=== PATIENT | male | born 1975 | race Caucasian/White ===

== ENCOUNTER 2020-08-24 15:48 | Emergency (ER) | payer SELFPAY ==
[2020-08-24] MEDS ORDERED: ACETAMINOPHEN 500 MG TAB (TYLENOL) PO STA (16:40)
--- NOTE | 2020-08-24 17:08 | ED Cough/URI ---
General Chief Complaint: Cough/Cold/Flu Symptoms Stated Complaint: LOW BACK PAIN/SOA/COUGH/COVID EXPOSED Nursing Triage Note: PT STATES EXPOSED TO COVID, HAS BEEN HAVING COUGH MUSCLE ACHES Sepsis Screen: No Definite Risk Source: patient Exam Limitations: no limitations History of Present Illness Date Seen by Provider: Aug 24, 2020 Time Seen by Provider: 16:20 Initial Comments Here with report of exposure to Covid through family members over the last week. Has had symptoms of cough and fatigue and body aches for the last 5 or 6 days. Significant other with similar. Took some ibuprofen for some low back pain and muscle aches and that helped. Eating and drinking okay. Concerned about Covid infection. Timing/Duration: week, getting worse Severity/Quality: mild, dry cough Prior Episodes/Possible Cause: no prior episodes Modifying Factors: Improves With Rest Associated Symptoms: cough, fever/chills, muscle aches, nasal congestion, short ness of breath, sore throat Allergies and Home Medications Allergies Coded Allergies: No Known Drug Allergies (Unverified , 08/24/20) Patient Home Medication List Home Medication List Reviewed: Yes Review of Systems Review of Systems Constitutional: see HPI EENTM: see HPI Respiratory: see HPI Cardiovascular: no symptoms reported Gastrointestinal: no symptoms reported Genitourinary: no symptoms reported Musculoskeletal: back pain, muscle pain All Other Systems Reviewed Negative Unless Noted: Yes Past Wljxdup-Qhqsbg-Ypqzfr Hx Past Med/Social Hx: Reviewed Nursing Past Med/Soc Hx Patient Social History Alcohol Use: Denies Use Smoking Status: Current Everyday Smoker Type Used: Cigarettes Recent Infectious Disease Expo: No Past Medical History Surgeries: No Respiratory: Yes Asthma Cardiac: Yes Coronary Artery Disease Neurological: No Gastrointestinal: No Endocrine: No Family Medical History Reviewed Nursing Family Hx Heart Disease Physical Exam Vital Signs - First Documented 08/24/20 16:10 Temp 37.0 Pulse 82 Resp 18 B/P (MAP) 141/89 (106) Pulse Ox 99 Capillary Refill : Less Than 3 Seconds Height: '" Weight: lbs. oz. kg; BMI Method: General Appearance: WD/WN, no apparent distress HEENT: PERRL/EOMI, pharyngeal erythema Neck: full range of motion, supple Respiratory: lungs clear, normal breath sounds Cardiovascular: regular rate, rhythm, no murmur Gastrointestinal: non tender, soft Neurologic/Psychiatric: alert, oriented x 3 Skin: normal color, warm/dry Progress/Results/Core Measures Suspected Sepsis Recent Fever Within 48 Hours: No Infection Criteria Present: Suspected New Infection New/Unexplained Altered Menta: No Sepsis Screen: No Definite Risk SIRS Temperature: Pulse: 82 Respiratory Rate: 18 Blood Pressure 141 /89 Mean: 106 Results/Orders Lab Results Laboratory Tests Test 08/24/20 16:27 Range/Units Coronavirus 2019 (REBEAC) Negative Negative My Orders Orders - LIBBY JESSICA MD Acetaminophen Tablet (Tylenol Tablet) (08/24/20 16:40) Influenza A And B Antigens (08/24/20 16:49) Covid 19 Inhouse Test (08/24/20 16:49) Vital Signs/I&O 08/24/20 16:10 Temp 37.0 Pulse 82 Resp 18 B/P (MAP) 141/89 (106) Pulse Ox 99 Capillary Refill : Less Than 3 Seconds Blood Pressure Mean: 106 Progress Note : Progress Note Seen and evaluated. Rapid influenza and rapid Covid test ordered. Tylenol 1 g p.o. Monitor patient. 1745: Flu negative. Covid negative. Confirmatory testing ordered. He is feeling a little better after Tylenol. Discharged home with return precautions. Patient verbalized understanding of instructions and agreement with plan. Departure Impression Primary Impression: Person under investigation for COVID-19 Additional Impression: Viral upper respiratory illness Disposition: 01 HOME, SELF-CARE Condition: Stable Departure-Patient Inst. Decision time for Depature: 17:30 Patient Instructions: Viral Upper Respiratory Infection, Adult (DC), Coronavirus Disease 2019 (COVID-19) (DC) Add. Discharge Instructions: All discharge instructions reviewed with patient and/or family. Voiced understanding. Drink plenty of fluids and get plenty of rest. You will need to remain isolated until test results are noted. If they are negative, you will need remain isolated for 24 hours after symptoms resolve. If they are positive, the health department will call you and direct quarantine/isolation timeframe. You may take ibuprofen 600 mg every 8 hours as needed for fever or pain. You may take Tylenol/acetaminophen 1000 mg every 8 hours as needed for fever or pain. Return for worse pain, fever, vomiting, weakness, breathing problems or other concerns as needed. You will still need to remain quarantined after exposure to family members with COVID-19 for up to 10 days after exposure or as directed by the health department. LIBBY JESSICA MD Aug 24, 2020 17:08
[2020-08-24 17:55] VITALS: BP 141/89
== END 2020-08-24 17:55 | disposition home or self-care (01) ==
LOC: ER 15:50
DX: J06.9 Acute upper respiratory infection, unspecified (principal); F17.210 Nicotine dependence, cigarettes, uncomplicated; Z20.822 Contact with and (suspected) exposure to COVID-19
CPT/HCPCS: 87804; 99282; U0002; 87635

== ENCOUNTER 2021-01-25 15:01 | Emergency (ER) | payer SELFPAY ==
[~2021-01-25] VITALS: Ht 185 cm; Wt 83.9 kg
[2021-01-25 16:10] LABS: BASOPHILS % (AUTO) 1 % (0-10); EOSINOPHILS # (AUTO) 0.1 10^3/uL (0.0-0.3); EOSINOPHILS % (AUTO) 3 % (0-10); HEMATOCRIT 43 % (40-54); HEMOGLOBIN 14.5 g/dL (13.3-17.7); LYMPHOCYTES # (AUTO) 0.2 X 10^3 (1.0-4.0); LYMPHOCYTES % (AUTO) 5 % (12-44); MEAN CORPUSCULAR HEMOGLOBIN 30 pg (25-34); MEAN CORPUSCULAR HGB CONC 34 g/dL (32-36); MEAN CORPUSCULAR VOLUME 88 fL (80-99); MONOCYTES # (AUTO) 0.5 X 10^3 (0.0-1.0); MONOCYTES % (AUTO) 11 % (0-12); NEUTROPHILS # (AUTO) 3.9 X 10^3 (1.8-7.8); NEUTROPHILS % (AUTO) 81 % (42-75); PLATELET COUNT 227 10^3/uL (130-400); WHITE BLOOD COUNT 4.9 10^3/uL (4.3-11.0)
--- NOTE | 2021-01-25 16:23 | ED Cough/URI ---
General Chief Complaint: Cough/Cold/Flu Symptoms Stated Complaint: COVID EXPOSURE, LOSS OF TASTE, FATIGUE,COUGH,FEVER Nursing Triage Note: PT PRESENTS TO ED FOR COUGH AND FATIGUE THAT STARTED AROUND NOON TODAY. PT REPORTS HIS TESTED POSITIVE FOR COVID TODAY. PT AMB. TO ROOM 10 WITHOUT DIFFICULTY. Sepsis Screen: Possible Severe Sepsis Risk Source: patient Exam Limitations: no limitations History of Present Illness Date Seen by Provider: Jan 25, 2021 Time Seen by Provider: 15:02 Initial Comments To ER with fatigue and shortness of breath at noon today. His is Covid positive. He has a history of asthma. Timing/Duration: constant Severity/Quality: moderate Associated Symptoms: cough Allergies and Home Medications Allergies Coded Allergies: banana (Verified Allergy, Severe, THROAT SWELLING, 01/25/21) Patient Home Medication List Home Medication List Reviewed: Yes Review of Systems Review of Systems Constitutional: see HPI, malaise EENTM: see HPI Respiratory: see HPI, dyspnea on exertion, short of breath Cardiovascular: no symptoms reported Genitourinary: no symptoms reported Musculoskeletal: no symptoms reported Skin: no symptoms reported Psychiatric/Neurological: No Symptoms Reported Hematologic/Lymphatic: No Symptoms Reported Immunological/Allergic: no symptoms reported Past Ecqfnqo-Bkrvlc-Pijqmg Hx Patient Social History Alcohol Use: Denies Use Smoking Status: Current Everyday Smoker Type Used: Cigarettes Recent Infectious Disease Expo: Yes (COVID) Recent Hopitalizations: No Seasonal Allergies Seasonal Allergies: No Past Medical History Surgeries: Yes (HEART CATH 2016) Respiratory: Yes Asthma Cardiac: Yes Coronary Artery Disease Neurological: No Gastrointestinal: No Endocrine: No Integumentary: No Family Medical History Heart Disease Physical Exam Vital Signs - First Documented 01/25/21 15:15 Temp 38.1 Pulse 115 Resp 22 B/P (MAP) 149/90 (109) O2 Delivery Room Air O2 Flow Rate 96.00 Capillary Refill : Less Than 3 Seconds Height: '" Weight: lbs. oz. kg; 24.00 BMI Method: General Appearance: WD/WN, no apparent distress, other (Oxygen saturation 97% room air) Eyes: Bilateral Eye Normal Inspection, Bilateral Eye PERRL Neck: non-tender, full range of motion Respiratory: no respiratory distress, no accessory muscle use Cardiovascular: no murmur, tachycardia Gastrointestinal: normal bowel sounds, non tender, soft Neurologic/Psychiatric: alert, normal mood/affect, oriented x 3 Skin: normal color, warm/dry Progress/Results/Core Measures Suspected Sepsis Recent Fever Within 48 Hours: Yes Infection Criteria Present: Suspected New Infection New/Unexplained Altered Menta: No Sepsis Screen: Possible Severe Sepsis Risk SIRS Temperature: Pulse: 115 Respiratory Rate: 22 Laboratory Tests 01/25/21 15:30: White Blood Count 4.9 Blood Pressure 149 /90 Mean: 109 Laboratory Tests 01/25/21 15:30: Creatinine 1.07, Platelet Count 227, Total Bilirubin 0.4 Results/Orders Lab Results Laboratory Tests Test 01/25/21 15:18 01/25/21 15:30 Range/Units Influenza Type A (RT-PCR) Not Detected Not Detecte Influenza Type B (RT-PCR) Not Detected Not Detecte SARS-CoV-2 RNA (RT-PCR) Detected H Not Detecte White Blood Count 4.9 4.3-11.0 10^3/uL Red Blood Count 4.87 4.30-5.52 10^6/uL Hemoglobin 14.5 13.3-17.7 g/dL Hematocrit 43 40-54 % Mean Corpuscular Volume 88 80-99 fL Mean Corpuscular Hemoglobin 30 25-34 pg Mean Corpuscular Hemoglobin Concent 34 32-36 g/dL Red Cell Distribution Width 12.3 10.0-14.5 % Platelet Count 227 130-400 10^3/uL Mean Platelet Volume 10.0 9.0-12.2 fL Immature Granulocyte % (Auto) 0 % Neutrophils (%) (Auto) 81 H 42-75 % Lymphocytes (%) (Auto) 5 L 12-44 % Monocytes (%) (Auto) 11 0-12 % Eosinophils (%) (Auto) 3 0-10 % Basophils (%) (Auto) 1 0-10 % Neutrophils # (Auto) 3.9 1.8-7.8 X 10^3 Lymphocytes # (Auto) 0.2 L 1.0-4.0 X 10^3 Monocytes # (Auto) 0.5 0.0-1.0 X 10^3 Eosinophils # (Auto) 0.1 0.0-0.3 10^3/uL Basophils # (Auto) 0.0 0.0-0.1 10^3/uL Immature Granulocyte # (Auto) 0.0 0.0-0.1 10^3/uL Neutrophils % (Manual) 84 % Lymphocytes % (Manual) 5 % Monocytes % (Manual) 8 % Eosinophils % (Manual) 2 % Band Neutrophils 1 % Blood Morphology Comment NORMAL Sodium Level 138 135-145 MMOL/L Potassium Level 3.9 3.6-5.0 MMOL/L Chloride Level 105 98-107 MMOL/L Carbon Dioxide Level 23 21-32 MMOL/L Anion Gap 10 5-14 MMOL/L Blood Urea Nitrogen 12 7-18 MG/DL Creatinine 1.07 0.60-1.30 MG/DL Estimat Glomerular Filtration Rate > 60 BUN/Creatinine Ratio 11 Glucose Level 95 70-105 MG/DL Calcium Level 9.6 8.5-10.1 MG/DL Corrected Calcium 9.2 8.5-10.1 MG/DL Total Bilirubin 0.4 0.1-1.0 MG/DL Aspartate Amino Transf (AST/SGOT) 25 5-34 U/L Alanine Aminotransferase (ALT/SGPT) 25 0-55 U/L Alkaline Phosphatase 58 40-136 U/L C-Reactive Protein High Sensitivity 0.31 0.00-0.50 MG/DL Total Protein 7.4 6.4-8.2 GM/DL Albumin 4.5 3.2-4.5 GM/DL My Orders Orders - TENA RIVERS ASSOCIATE TEACHER Covid 19 Inhouse Test (01/25/21 15:46) Influenza A And B By Pcr (01/25/21 15:46) Cbc With Automated Diff (01/25/21 16:01) Comprehensive Metabolic Panel (01/25/21 16:01) Fibrin Degradation Products (01/25/21 16:01) Hs C Reactive Protein (01/25/21 16:01) Chest 1 View, Ap/Pa Only (01/25/21 16:01) Manual Differential (01/25/21 15:30) Vital Signs/I&O 01/25/21 01/25/21 15:15 15:15 Temp 38.1 Pulse 115 Resp 22 B/P (MAP) 149/90 (109) O2 Delivery Room Air Room Air O2 Flow Rate 96.00 Capillary Refill : Less Than 3 Seconds Blood Pressure Mean: 109 Diagnostic Imaging Diagonstic Imaging: Xray Plain Films/CT/US/NM/MRI: chest Comments NAME: MALCOLM ESTRADA Neil [facility] REC#: [id number] PT STATUS: REG ER : 1975 PHYSICIAN: TENA RIVERS APRN ADMIT DATE: 01/25/21/ER Draft Date of Exam:01/25/21 CHEST 1 VIEW, AP/PA ONLY INDICATION: cough COMPARISON: None. FINDINGS: Single frontal view of the chest demonstrates normal heart size and pulmonary vascularity. The lungs are well aerated and clear. No large pleural effusion or pneumothorax is seen. The visualized osseous structures show no acute abnormalities. IMPRESSION: 1. No acute cardiopulmonary process. Dictated on workstation # [id number] Dict: 01/25/21 1643 Trans: 01/25/21 1645 [id number] Interpreted by: ARJUN ORTIZ MD Electronically signed by: Departure Impression Primary Impression: COVID-19 Disposition: 01 HOME, SELF-CARE Condition: Stable Departure-Patient Inst. Decision time for Depature: 16:25 Referrals: NO,LOCAL PHYSICIAN (PCP/Family) Primary Care Physician Patient Instructions: COVID-19 ED Work/School Note: Work Release Form Date Seen in the Emergency Department: Jan 25, 2021 Return to Work: Feb 05, 2021 TENA RIVERS APRN Jan 25, 2021 16:23
[2021-01-25 16:25] LABS: BAND NEUTROPHILS 1 %; EOSINOPHILS % (MANUAL) 2 %; LYMPHOCYTES % (MANUAL) 5 %; MONOCYTES % (MANUAL) 8 %; NEUTROPHILS % (MANUAL) 84 %
[2021-01-25 16:26] LABS: RBC MORPH NORMAL
[2021-01-25 16:29] LABS: ALBUMIN 4.5 GM/DL (3.2-4.5); CHLORIDE 105 MMOL/L (98-107); POTASSIUM 3.9 MMOL/L (3.6-5.0); SODIUM 138 MMOL/L (135-145)
[2021-01-25 16:30] LABS: CALCIUM 9.6 MG/DL (8.5-10.1)
[2021-01-25 16:32] LABS: GLUCOSE 95 MG/DL (70-105); TOTAL PROTEIN 7.4 GM/DL (6.4-8.2)
[2021-01-25 16:33] LABS: BILIRUBIN,TOTAL 0.4 MG/DL (0.1-1.0); CARBON DIOXIDE 23 MMOL/L (21-32)
[2021-01-25 16:35] LABS: ALKALINE PHOSPHATASE 58 U/L (40-136); CREATININE SERUM 1.07 MG/DL (0.60-1.30); GFR ESTIMATED > 60
[2021-01-25 16:36] LABS: BUN/CREATININE RATIO 11
[2021-01-25 16:38] LABS: ALANINE AMINOTRANSFERASE 25 U/L (0-55)
--- NOTE | 2021-01-25 16:45 | Diagnostic Imaging Report ---
INDICATION: cough COMPARISON: None. FINDINGS: Single frontal view of the chest demonstrates normal heart size and pulmonary vascularity. The lungs are well aerated and clear. No large pleural effusion or pneumothorax is seen. The visualized osseous structures show no acute abnormalities. IMPRESSION: 1. No acute cardiopulmonary process. Dictated by: Dictated on workstation # [id number]
[2021-01-25 17:50] VITALS: BP 126/86
== END 2021-01-25 17:50 | disposition home or self-care (01) ==
LOC: EDUNIT# 15:01 → ER 15:03
DX: U07.1 COVID-19 (principal); J45.909 Unspecified asthma, uncomplicated; F17.210 Nicotine dependence, cigarettes, uncomplicated
CPT/HCPCS: 36415; 71045; 80053; 85007; 85027; 86141; 87636

== ENCOUNTER 2021-02-04 10:58 | Emergency (ER) | payer SELFPAY ==
[~2021-02-04] VITALS: Ht 185.4 cm; Wt 83.9 kg
[2021-02-04] MEDS ORDERED: NS IV 1000 ML 1,000 ML IV SCH (11:45)
[2021-02-04] MEDS ORDERED: ONDANSETRON 4 MG/2 ML (SDV) Z0FRAN IVP ONE (11:45)
[2021-02-04 12:04] LABS: BASOPHILS % (AUTO) 0 % (0-10); EOSINOPHILS # (AUTO) 0.1 10^3/uL (0.0-0.3); EOSINOPHILS % (AUTO) 1 % (0-10); HEMATOCRIT 45 % (40-54); HEMOGLOBIN 15.5 g/dL (13.3-17.7); LYMPHOCYTES # (AUTO) 0.9 10^3/uL (1.0-4.0); LYMPHOCYTES % (AUTO) 12 % (12-44); MEAN CORPUSCULAR HEMOGLOBIN 30 pg (25-34); MEAN CORPUSCULAR HGB CONC 35 g/dL (32-36); MEAN CORPUSCULAR VOLUME 86 fL (80-99); MEAN PLATELET VOLUME 10.9 fL (9.0-12.2); MONOCYTES # (AUTO) 0.7 10^3/uL (0.0-1.0); MONOCYTES % (AUTO) 8 % (0-12); NEUTROPHILS # (AUTO) 6.1 10^3/uL (1.8-7.8); NEUTROPHILS % (AUTO) 79 % (42-75); PLATELET COUNT 181 10^3/uL (130-400); WHITE BLOOD COUNT 7.7 10^3/uL (4.3-11.0)
[2021-02-04 12:13] LABS: ALBUMIN 4.1 GM/DL (3.2-4.5); CHLORIDE 106 MMOL/L (98-107); POTASSIUM 3.9 MMOL/L (3.6-5.0); SODIUM 140 MMOL/L (135-145)
[2021-02-04 12:14] LABS: CALCIUM 9.1 MG/DL (8.5-10.1)
[2021-02-04 12:16] LABS: GLUCOSE 90 MG/DL (70-105); TOTAL PROTEIN 7.1 GM/DL (6.4-8.2)
[2021-02-04 12:17] LABS: BILIRUBIN,TOTAL 0.9 MG/DL (0.1-1.0); CARBON DIOXIDE 21 MMOL/L (21-32)
[2021-02-04 12:19] LABS: ALKALINE PHOSPHATASE 75 U/L (40-136)
[2021-02-04 12:20] LABS: CREATININE SERUM 0.98 MG/DL (0.60-1.30); GFR ESTIMATED > 60
[2021-02-04 12:21] LABS: BUN/CREATININE RATIO 12
[2021-02-04 12:22] LABS: ALANINE AMINOTRANSFERASE 28 U/L (0-55)
--- NOTE | 2021-02-04 12:34 | Diagnostic Imaging Report ---
INDICATION: Cough and shortness of breath. TIME OF EXAM: 12:20 PM Correlation is made with prior chest 01/25/2021. FINDINGS: The heart size is normal. The pulmonary vascularity is unremarkable. The lungs are clear. No infiltrate, effusion or pneumothorax is detected. IMPRESSION: No acute cardiopulmonary process is detected. Dictated by: Dictated on workstation # [id number]
--- NOTE | 2021-02-04 12:38 | ED Cough/URI ---
General Chief Complaint: Respiratory Problems Stated Complaint: SOB/ COUGH Nursing Triage Note: PT REPORTS BEING DIAGNOSED WITH COVID LAST WEEK. PT REPORTS STILL NOT FEELING WELL. PT C/O SOB, NAUSEA, PRODUCTIVE COUGH WITH WHITE MUCOUS, AND SINUS DRAINAGE. Sepsis Screen: Possible Severe Sepsis Risk Source: patient Exam Limitations: no limitations History of Present Illness Date Seen by Provider: Feb 04, 2021 Time Seen by Provider: 12:38 Initial Comments Patient tested positive for Covid last week and he still not feeling better. He has persistent shortness of breath nausea productive cough Timing/Duration: just prior to arrival Severity/Quality: productive cough Prior Episodes/Possible Cause: no prior episodes Associated Symptoms: cough, fever/chills, shortness of breath Allergies and Home Medications Allergies Coded Allergies: banana (Verified Allergy, Severe, THROAT SWELLING, 01/25/21) Home Medications Dexamethasone 6 Mg Tablet, 6 MG PO DAILY Prescribed by: TENA RIVERS on 02/04/21 1258 Patient Home Medication List Home Medication List Reviewed: Yes Review of Systems Review of Systems Constitutional: see HPI, chills, malaise, weakness EENTM: see HPI, nose congestion Respiratory: see HPI, cough Cardiovascular: no symptoms reported Genitourinary: no symptoms reported Musculoskeletal: no symptoms reported Skin: no symptoms reported Psychiatric/Neurological: No Symptoms Reported Hematologic/Lymphatic: No Symptoms Reported Immunological/Allergic: no symptoms reported Past Jqehzyj-Uxxnhp-Eeqbmr Hx Patient Social History Alcohol Use: Denies Use Smoking Status: Current Everyday Smoker Type Used: Cigarettes 2nd Hand Smoke Exposure: Yes Recent Infectious Disease Expo: Yes (COVID +) Recent Hopitalizations: No Seasonal Allergies Seasonal Allergies: No Past Medical History Surgeries: Yes (HEART CATH 2016) Respiratory: Yes (covid) Asthma Cardiac: Yes Coronary Artery Disease Neurological: No Genitourinary: No Gastrointestinal: No Musculoskeletal: No Endocrine: No HEENT: No Cancer: No Psychosocial: No Integumentary: No Blood Disorders: No Family Medical History Heart Disease Physical Exam Vital Signs - First Documented 02/04/21 11:06 Temp 37.2 Pulse 96 Resp 20 B/P (MAP) 126/88 (101) Pulse Ox 98 O2 Delivery Room Air Capillary Refill : Less Than 3 Seconds Height: '" Weight: lbs. oz. kg; 24.00 BMI Method: General Appearance: WD/WN, no apparent distress, other (Neither tachypneic nor hypoxic) Eyes: Bilateral Eye Normal Inspection, Bilateral Eye PERRL, Bilateral Eye EOMI Neck: non-tender Respiratory: normal breath sounds, no respiratory distress, no accessory muscle use Cardiovascular: regular rate, rhythm, no murmur Gastrointestinal: normal bowel sounds, non tender, soft Neurologic/Psychiatric: alert, normal mood/affect, oriented x 3 Skin: normal color, warm/dry No distress alert and oriented very pleasant Progress/Results/Core Measures Suspected Sepsis Recent Fever Within 48 Hours: Yes Infection Criteria Present: Suspected New Infection New/Unexplained Altered Menta: No Sepsis Screen: Possible Severe Sepsis Risk SIRS Temperature: Pulse: 96 Respiratory Rate: 20 Laboratory Tests 02/04/21 11:50: White Blood Count 7.7 Blood Pressure 126 /88 Mean: 101 Laboratory Tests 02/04/21 11:50: Creatinine 0.98, Platelet Count 181, Total Bilirubin 0.9 Results/Orders Lab Results Laboratory Tests Test 02/04/21 11:50 Range/Units White Blood Count 7.7 4.3-11.0 10^3/uL Red Blood Count 5.25 4.30-5.52 10^6/uL Hemoglobin 15.5 13.3-17.7 g/dL Hematocrit 45 40-54 % Mean Corpuscular Volume 86 80-99 fL Mean Corpuscular Hemoglobin 30 25-34 pg Mean Corpuscular Hemoglobin Concent 35 32-36 g/dL Red Cell Distribution Width 11.8 10.0-14.5 % Platelet Count 181 130-400 10^3/uL Mean Platelet Volume 10.9 9.0-12.2 fL Immature Granulocyte % (Auto) 0 % Neutrophils (%) (Auto) 79 H 42-75 % Lymphocytes (%) (Auto) 12 12-44 % Monocytes (%) (Auto) 8 0-12 % Eosinophils (%) (Auto) 1 0-10 % Basophils (%) (Auto) 0 0-10 % Neutrophils # (Auto) 6.1 1.8-7.8 10^3/uL Lymphocytes # (Auto) 0.9 L 1.0-4.0 10^3/uL Monocytes # (Auto) 0.7 0.0-1.0 10^3/uL Eosinophils # (Auto) 0.1 0.0-0.3 10^3/uL Basophils # (Auto) 0.0 0.0-0.1 10^3/uL Immature Granulocyte # (Auto) 0.0 0.0-0.1 10^3/uL D-Dimer 0.70 H 0.00-0.49 UG/ML Sodium Level 140 135-145 MMOL/L Potassium Level 3.9 3.6-5.0 MMOL/L Chloride Level 106 98-107 MMOL/L Carbon Dioxide Level 21 21-32 MMOL/L Anion Gap 13 5-14 MMOL/L Blood Urea Nitrogen 12 7-18 MG/DL Creatinine 0.98 0.60-1.30 MG/DL Estimat Glomerular Filtration Rate > 60 BUN/Creatinine Ratio 12 Glucose Level 90 70-105 MG/DL Calcium Level 9.1 8.5-10.1 MG/DL Corrected Calcium 9.0 8.5-10.1 MG/DL Total Bilirubin 0.9 0.1-1.0 MG/DL Aspartate Amino Transf (AST/SGOT) 23 5-34 U/L Alanine Aminotransferase (ALT/SGPT) 28 0-55 U/L Alkaline Phosphatase 75 40-136 U/L C-Reactive Protein High Sensitivity 1.42 H 0.00-0.50 MG/DL Total Protein 7.1 6.4-8.2 GM/DL Albumin 4.1 3.2-4.5 GM/DL Procalcitonin 0.02 <0.10 NG/ML My Orders Orders - TENA RIVERS CAP AND STUD MACHINE OPERATOR Cbc With Automated Diff (02/04/21 11:44) Comprehensive Metabolic Panel (02/04/21 11:44) Procalcitonin (Pct) (02/04/21 11:44) Fibrin Degradation Products (02/04/21 11:44) Hs C Reactive Protein (02/04/21 11:44) Chest 1 View, Ap/Pa Only (02/04/21 11:44) Ed Iv/Invasive Line Start (02/04/21 11:44) Ns Iv 1000 Ml (Sodium Chloride 0.9%) (02/04/21 11:45) Ondansetron Injection (Zofran Injectio (02/04/21 11:45) Ct Angio Chest W (02/04/21 12:37) Iohexol Injection (Omnipaque 350 Mg/Ml 1 (02/04/21 12:45) Received Contrast (Hold Metformin- Contr (02/04/21 12:45) Sodium Chloride Flush (Catheter Flush Sy (02/04/21 12:45) Ns (Ivpb) (Sodium Chloride 0.9% Ivpb Bag (02/04/21 12:45) Medications Given in ED Current Medications Medications Dose Ordered Sig/Amena Route Start Time Stop Time Status Last Admin Dose Admin Iohexol 100 ml ONCE ONCE IV 02/04/21 12:45 02/04/21 12:46 DC 02/04/21 13:09 73 ML Ondansetron HCl 8 mg ONCE ONCE IVP 02/04/21 11:45 02/04/21 11:46 DC 02/04/21 11:56 8 MG Sodium Chloride 10 ml NEEDED PRN IV 02/04/21 12:45 02/04/21 13:32 DC 02/04/21 13:09 10 ML Sodium Chloride 100 ml ONCE ONCE IV 02/04/21 12:45 02/04/21 12:46 DC 02/04/21 13:09 80 ML Vital Signs/I&O 02/04/21 02/04/21 11:06 13:27 Temp 37.2 37.2 Pulse 96 96 Resp 20 20 B/P (MAP) 126/88 (101) 126/88 (101) Pulse Ox 98 98 O2 Delivery Room Air Room Air Capillary Refill : Less Than 3 Seconds Blood Pressure Mean: 101 Departure Impression Primary Impression: COVID-19 Disposition: 01 HOME, SELF-CARE Condition: Stable Departure-Patient Inst. Decision time for Depature: 12:55 Referrals: NO,LOCAL PHYSICIAN (PCP/Family) Primary Care Physician Patient Instructions: COVID-19 ED Scripts Dexamethasone (Decadron) 6 Mg Tablet 6 MG PO DAILY, #5 TAB Prov: TENA RIVERS CAP AND STUD MACHINE OPERATOR 02/04/21 TENA RIVERS CAP AND STUD MACHINE OPERATOR Feb 04, 2021 12:38
[2021-02-04] MEDS ORDERED: HOLD METFORMIN - RECEIVED CONTRAST 20 ML VIAL IV SCH (12:45)
[2021-02-04] MEDS ORDERED: NS 100 ML (IVPB) BAG IV ONE (12:45)
[2021-02-04] MEDS ORDERED: CATHETER FLUSH 10 ML SYR IV PRN (12:45)
[2021-02-04] MEDS ORDERED: IOHEXOL 350 MG/ML 100 ML (OMNIPAQUE 350) VIAL IV ONE (12:45)
[2021-02-04] MEDS ORDERED: DEXA6TAB6 PO (12:58)
--- NOTE | 2021-02-04 13:20 | Diagnostic Imaging Report ---
PROCEDURE: CT angiography of the chest with contrast. TECHNIQUE: Multiple contiguous axial images were obtained through the chest after uneventful bolus administration of intravenous contrast. 3D reconstructed CTA MIP acquisitions were also performed. Auto Exposure Controls were utilized during the CT exam to meet ALARA standards for radiation dose reduction. INDICATION: Shortness of breath and nausea with cough. Patient also has elevated D-dimer and is Covid 19 positive. No prior studies are available for comparison. Evaluation of the pulmonary arterial system is without evidence of thromboembolism. No definite filling defects are seen within central, lobar or segmental branches. The thoracic aorta is normal caliber. No dissection is identified. There is no pericardial or pleural fluid identified. There is minimal patchy peripheral infiltrate in the left upper lobe. There is some minimal patchy infiltrate in the posterior left lower lobe. Findings are consistent with pneumonia. The upper abdomen is unremarkable. IMPRESSION: 1. No evidence of pulmonary embolus or thoracic aortic dissection. 2. Patchy airspace infiltrate in the left upper and left lower lobe consistent with pneumonia. Dictated by: Dictated on workstation # [id number]
[2021-02-04 13:27] VITALS: BP 126/88
== END 2021-02-04 13:27 | disposition home or self-care (01) ==
LOC: EDUNIT# 10:58 → ER 11:00
DX: U07.1 COVID-19 (principal); J45.909 Unspecified asthma, uncomplicated; F17.210 Nicotine dependence, cigarettes, uncomplicated
CPT/HCPCS: 36415; 71045; 71275; 80053; 84145; 85025; 85379; 86141

== ENCOUNTER 2021-09-01 18:26 | Emergency (ER) | payer OTHER ==
[~2021-09-01] VITALS: Ht 185.5 cm; Wt 81.6 kg
[~2021-09-01 18:26] MED LIST: DEXA6TAB6 PO
--- NOTE | 2021-09-01 21:42 | ED General ---
General Chief Complaint: COVID19 Suspect/Confirmed Stated Complaint: SOB, BODY ACHES, SORE THROAT, CONGESTION Nursing Triage Note: Pt arrives via POV from home for c/o sore throat, cough, et covid exposure; onset yesterday. Pt reports he was told by his boss to come to the ED for covid test. Source of Information: Patient (EDWIN JAIME MED STUDENT) History of Present Illness Date Seen by Provider: Sep 01, 2021 Time Seen by Provider: 21:37 Initial Comments David Hansen is a 46 year old M presenting to the ED due to c/o congestion, green nasal secretions, cough, and body aches. Pt states that his work/ boss requested the pt to come to the ED for a COVID test. Symptoms have been continuous since previous COVID infection in January 2021 and endorses continued loss of smell. Pt notes improvement of symptoms with michael-seltzer cold & flu and worsening of symptoms with heat related to work environment. PMH includes asthma. PSH includes a heart cath procedure. Pt denies a PCP, but states he is looking for one. Pt is also requesting a work note with negative COVID results. Timing/Duration: Getting Worse (Since COVID infx January 2021) Severity: Mild Modifying Factors: improves with Medication; worse with Other (heat secondary to work environment) Associated Systoms: Cough, Malaise, Other (Congestion) (EDWIN JAIME MED STUDENT) Initial Comments Patient states symptoms have been progressive since having COVID-19 in January. He has some pain behind the bridge of his nose and some postnasal drip. He is afebrile. His employer urged him to present to have a COVID test performed. (NAZARIO DENNEY MD) Allergies and Home Medications Allergies Coded Allergies: banana (Verified Allergy, Severe, THROAT SWELLING, 01/25/21) Patient Home Medication List Home Medication List Reviewed: Yes (NAZARIO DENNEY MD) Amoxicillin (Amoxicillin) 500 Mg Capsule, 1,000 MG PO BID Prescribed by: NAZARIO FLETCHER on 09/01/21 8058 Dexamethasone (Decadron) 6 Mg Tablet, 6 MG PO DAILY Prescribed by: TENA RIVERS on 02/04/21 1258 Fluticasone Propionate (Flonase Allergy Relief) 9.9 Ml Pryor.susp, 2 SPRAY NSEACH BID Prescribed by: NAZARIO FLETCHER on 09/01/210 Review of Systems Review of Systems Constitutional: malaise EENTM: epistaxis, nose congestion Respiratory: cough Cardiovascular: no symptoms reported Gastrointestinal: no symptoms reported Genitourinary: no symptoms reported Musculoskeletal: back pain (Lumbar) Skin: no symptoms reported Psychiatric/Neurological: No Symptoms Reported Hematologic/Lymphatic: No Symptoms Reported Immunological/Allergic: no symptoms reported (EDWIN JAIME) All Other Systems Reviewed Negative Unless Noted: Yes (EDWIN JAIME) Past [id number] Hx Patient Social History Tobacco Use?: Yes Tobacco type used: Cigarettes Smoking Status: Current Everyday Smoker Use of E-Cig and/or Vaping dev: No Substance use?: No Alcohol Use?: No (EDWIN JAIME) Tobacco Use?: Yes (NAZARIO DENNEY MD) Seasonal Allergies Seasonal Allergies: No (EDWIN JAIME) Past Medical History Surgeries: Yes (HEART CATH 2017) Respiratory: Yes (covid) Asthma Cardiac: Yes Coronary Artery Disease Neurological: No Genitourinary: No Gastrointestinal: No Musculoskeletal: No Endocrine: No HEENT: No Cancer: No Psychosocial: No Integumentary: No Blood Disorders: No (EDWIN JAIME) Family Medical History Heart Disease (EDWIN JAIME) Physical Exam Vital Signs Vital Signs - First Documented (NAZARIO DENNEY MD) Vital Signs Capillary Refill : Less Than 3 Seconds (EDWIN JAIME) Height, Weight, BMI Height: '" Weight: lbs. oz. kg; 23.00 BMI Method: General Appearance: No Apparent Distress, WD/WN HEENT: TMs Normal, Pharynx Normal, Other (Septal deviation secondary to prior trauma) Respiratory: Chest Non Tender, Lungs Clear, Normal Breath Sounds, No Accessory Muscle Use, No Respiratory Distress Cardiovascular: Regular Rate, Rhythm, No Gallop, No Murmur Neurologic/Psychiatric: Alert, Oriented x3, No Motor/Sensory Deficits, Normal Mood/Affect Skin: Normal Color, Warm/Dry Lymphatic: No Adenopathy (Submandibular) (EDWIN JAIME) Progress/Results/Core Measures Suspected Sepsis SIRS Temperature: Pulse: 82 Respiratory Rate: 18 Blood Pressure 133 /103 Mean: 113 (JAIMEEDWIN MED STUDENT) Results/Orders Lab Results Laboratory Tests Test 09/01/21 19:20 Range/Units Influenza Type A (RT-PCR) Not Detected Not Detecte Influenza Type B (RT-PCR) Not Detected Not Detecte SARS-CoV-2 RNA (RT-PCR) Not Detected Not Detecte (NAZARIO DENNEY MD) My Orders Orders - NAZARIO DENNEY MD Covid 19 Inhouse Test (09/01/21 18:51) Influenza A And B By Pcr (09/01/21 18:51) (NAZARIO DENNEY MD) Vital Signs/I&O 09/01/21 09/01/21 09/01/21 19:15 19:15 22:03 Temp 36.2 36.2 Pulse 82 82 Resp 18 18 B/P (MAP) 133/103 (113) 133/103 Pulse Ox 98 98 O2 Delivery Room Air Room Air Room Air (NAZARIO DENNEY MD) Vital Signs/I&O Capillary Refill : Less Than 3 Seconds (JAIMEEDWIN MED STUDENT) Blood Pressure Mean: 113 Progress Note : Progress Note Patient may have developed sinusitis from sequela of COVID-19 infection and smoking. He was prescribed nasal steroid spray and amoxicillin. He was encouraged to work on smoking cessation. (NAZARIO DENNEY MD) Departure Impression Primary Impression: Acute sinusitis Qualified Codes: J01.90 - Acute sinusitis, unspecified Disposition: HOME, SELF-CARE Condition: Stable Departure-Patient Inst. Decision time for Depature: 21:54 (NAZARIO DENNEY MD) Referrals: NO,LOCAL PHYSICIAN (PCP/Family) Primary Care Physician Patient Instructions: Sinusitis in Adults Add. Discharge Instructions: Your COVID-19 and influenza tests were negative. You may be developing a bacterial sinus infection. Complete your antibiotics as prescribed. Use Flonase twice daily until symptoms have resolved for at least a couple of weeks. Work toward quitting smoking as rapidly as possible. Follow-up with your primary care provider if symptoms have not resolved after 2 weeks. Return to the ER if you have any other urgent concerns. Call with questions or concerns. All discharge instructions reviewed with patient and/or family. Voiced understanding. Scripts Fluticasone Propionate (Flonase Allergy Relief) 9.9 Ml Pryor.susp 2 SPRAY NSEACH BID, #1 EACH 1 Refill 2 SPRAYS PER NOSTRIL DAILY X 2 DAYS THEN 1 SPRAY DAILY Prov: NAZARIO DENNEY MD 09/01/21 Amoxicillin (Amoxicillin) 500 Mg Capsule 1000 MG PO BID, #40 CAP 0 Refills Prov: NAZARIO DENNEY MD 09/01/21 Work/School Note: Work Release Form Date Seen in the Emergency Department: Sep 01, 2021 Return to Work: Sep 01, 2021 Restrictions: No Restrictions Medical Student Attestation and Attending Note: I have personally interviewed and examined this patient along with Edwin Jaime, MS 4. I have reviewed student documentation including history, physical, and assessments. I agree with the documentation except where otherwise noted. Exam: General: Alert, oriented, no acute distress, well developed HEENT: Normocephalic and atraumatic, tenderness over the bridge of the nose indicating inflammation of the sphenoid or ethmoid sinuses, normal oropharynx, no other facial tenderness Heart: Regular rate and rhythm without murmur Lungs: Clear to auscultation bilaterally with normal effort Neuropsych: Alert, oriented, no focal deficits Skin: Warm and dry without rashes (NAZARIO DENNEY MD) EDWIN JAIME MED STUDENT Sep 01, 2021 21:42 NAZARIO DENNEY MD Sep 01, 2021 21:57
[2021-09-01] MEDS ORDERED: AMOX500C2 PO (21:57)
[2021-09-01] MEDS ORDERED: FLUT9.9S NSEACH (21:57)
[2021-09-01 22:03] VITALS: BP 133/103
== END 2021-09-01 22:03 | disposition home or self-care (01) ==
LOC: EDUNIT# 18:26 → ER 18:28
DX: J01.90 Acute sinusitis, unspecified (principal); J45.909 Unspecified asthma, uncomplicated; I25.10 Atherosclerotic heart disease of native coronary artery without angina pectoris; F17.210 Nicotine dependence, cigarettes, uncomplicated; Z86.16 Personal history of COVID-19; Z95.9 Presence of cardiac and vascular implant and graft, unspecified; Z20.822 Contact with and (suspected) exposure to COVID-19
CPT/HCPCS: 87636; 99283